=== PATIENT | male | born 1985 | race African-American/Black ===

== ENCOUNTER 2020-11-15 05:26 | Emergency (ER) | payer SELFPAY ==
[2020-11-15] MEDS: Ketorolac 30 MG/ML SDV IM ONE (05:55)
[2020-11-15] MEDS: hydrOXYzine HCl 50 MG/ML SDV IM ONE (05:55)
--- NOTE | 2020-11-15 06:36 | EDM.PDOC ---
<Tarun Rod M - Last Filed: 11/15/20 06:33> ED HPI GENERAL MEDICAL PROBLEM - General Chief Complaint: Chest Pain Stated Complaint: CHEST PAIN Time Seen by Provider: 11/15/20 06:33 Source of Information: Reports: Patient History Limitations: Reports: No Limitations - History of Present Illness INITIAL COMMENTS - FREE TEXT/NARRATIVE: Francesco complains of retrosternal chest pain that started after vomiting episode. No SOB. No radiation.Denies any cough.He is a smoker.Otherwise heathy Chest Pain Score (Numeric/FACES): 10 - Related Data Allergies Allergy/AdvReac Type Severity Reaction Status Date / Time No Known Allergies Allergy Verified 11/15/20 05:50 Home Meds: Home Meds NK [No Known Home Meds] 11/15/20 [History] Social & Family History - Tobacco Use Tobacco Use Status *Q: Current Every Day Tobacco User Years of Tobacco use: 6 Packs/Tins Daily: 0.3 - Caffeine Use Caffeine Use: Reports: Coffee, Energy Drinks, Soda, Tea - Recreational Drug Use Recreational Drug Use: No ED ROS GENERAL - Review of Systems Review Of Systems: Comprehensive ROS is negative, except as noted in HPI. ED EXAM, GENERAL - Physical Exam Exam: See Below Exam Limited By: No Limitations General Appearance: Alert, WD/WN, No Apparent Distress Ears: Normal External Exam Ear Exam: Bilateral Ear: Auricle Normal, Canal Normal, TM normal Nose: Normal Inspection Throat/Mouth: Normal Inspection Head: Atraumatic Neck: Normal Inspection Respiratory/Chest: No Respiratory Distress, Lungs Clear, No Accessory Muscle Use Cardiovascular: Normal Peripheral Pulses, Regular Rate, Rhythm, No Edema #1 Interpretation EKG Date: 11/15/20 Time: 05:30 Rhythm: NSR [place]: Normal P-Wave: Present ST-T: Normal Comparison: NA - No Prior EKG Departure - Departure Time of Disposition: 06:35 Disposition: DC/Tfer to Acute Hospital 02 Clinical Impression: Acute pancreatitis, Elevated liver function tests, Hypoalbuminemia, Alcohol abuse, Elevated blood pressure reading, Abnormal EKG, Hypomagnesemia Referrals: PCP,None [Primary Care Provider] - Forms: ED Department Discharge Sepsis Event Note (ED) - Evaluation Sepsis Screening Result: No Definite Risk - Problem List & Annotations (1) Chest pain SNOMED Code(s): 86241627 Code(s): R07.9 - CHEST PAIN, UNSPECIFIED Status: Acute Current Visit: Yes Qualifiers: Chest pain type: intercostal pain Qualified Code(s): R07.82 - Intercostal pain (2) HTN (hypertension) SNOMED Code(s): 11038838 Code(s): I10 - ESSENTIAL (PRIMARY) HYPERTENSION Status: Acute Current Visit: Yes Qualifiers: Hypertension type: essential hypertension Qualified Code(s): I10 - Essential (primary) hypertension (3) Tobacco abuse SNOMED Code(s): 453766826 Code(s): Z72.0 - TOBACCO USE Status: Acute Current Visit: Yes - Problem List Review Problem List Initiated/Reviewed/Updated: Yes <Carlton Moreno - Last Filed: 11/15/20 13:18> Course - Vital Signs Last Recorded V/S: Last Vital Signs Temp 36.6 C 11/15/20 05:30 Pulse 80 11/15/20 05:30 Resp 16 11/15/20 05:30 BP 164/111 H 11/15/20 06:41 Pulse Ox 99 11/15/20 05:30 - Orders/Labs/Meds Orders: Active Orders 24 hr Category Date Time Status EKG Documentation Completion [RC] ASDIRECTED Care 11/15/20 05:43 Active Ang Chest [CT] Stat Exams 11/15/20 06:37 Taken URINALYSIS W/MICROSCOPIC [UA W/MICROSCOPIC] [URIN] Stat Lab 11/15/20 07:42 Ordered Sodium Chloride 0.9% [Saline Flush] Med 11/15/20 06:48 Active 10 ml FLUSH ASDIRECTED PRN EKG 12 Lead [EK] Routine Ther 11/15/20 05:43 Ordered Medication Orders Sodium Chloride (Sodium Chloride 0.9% 10 Ml Syringe) 10 ml FLUSH ASDIRECTED PRN PRN Reason: IV Use Last Admin: 11/15/20 06:48 Dose: 10 ml Documented by: HUI Labs: Laboratory Tests 11/15/20 11/15/20 11/15/20 Range/Units 05:45 05:45 05:45 WBC 8.5 (3.2-10.1) x10-3/uL RBC 5.81 (3.90-5.90) x10(6)uL Hgb 17.4 (12.9-17.7) g/dL Hct 51.5 H (38.3-50.1) % MCV 88.6 (80.8-98.7) fL MCH 29.9 (27.0-33.3) pg MCHC 33.8 (28.7-35.3) g/dL RDW 16.3 H (12.4-15.0) % Plt Count 168 (117-477) x10(3)uL MPV 7.0 (6.7-11.0) fL Neut % (Auto) 76.0 H (40.3-71.8) % Lymph % (Auto) 11.0 L (15.8-45.3) % [place] % (Auto) 11.5 (5.5-15.2) % Eos % (Auto) 1.2 (0.1-6.8) % Baso % (Auto) 0.3 (0.3-3.8) % Neut # (Auto) 6.5 (1.7-6.9) x10-3/uL Lymph # (Auto) 0.9 (0.5-4.5) x10-3/uL [place] # (Auto) 1.0 (0.0-1.2) x10-3/uL Eos # (Auto) 0.1 (0.0-0.6) x10-3/uL Baso # (Auto) 0.0 (0.0-0.3) x10-3/uL D-Dimer, Quantitative 0.90 H (0.0-0.59) mg/LFEU Sodium 137 (135-145) mmol/L Potassium 3.6 (3.5-5.3) mmol/L Chloride 100 (100-110) mmol/L Carbon Dioxide 26 (21-32) mmol/L BUN 5 L (7-18) mg/dL Creatinine 0.9 (0.70-1.30) mg/dL Est Cr Clr Drug Dosing 89.31 mL/min Estimated GFR (MDRD) > 60 (>60) BUN/Creatinine Ratio 5.6 L (9-20) Glucose 153 H (80-116) mg/dL Calcium 8.5 L (8.6-10.2) mg/dL Total Bilirubin 1.6 H (0.1-1.3) mg/dL AST 183 H* (5-25) IU/L ALT 247 H* (12-36) U/L Alkaline Phosphatase 125 H (56-112) IU/L Troponin I (4.0-60.3) pg/mL C-Reactive Protein (0.5-0.9) mg/dL Total Protein 7.0 (6.0-8.0) g/dL Albumin 3.2 L (3.5-5.2) g/dL Globulin 3.8 g/dL Albumin/Globulin Ratio 0.8 Lipase (73-393) U/L 11/15/20 11/15/20 11/15/20 Range/Units 05:45 08:05 08:05 WBC (3.2-10.1) x10-3/uL RBC (3.90-5.90) x10(6)uL Hgb (12.9-17.7) g/dL Hct (38.3-50.1) % MCV (80.8-98.7) fL MCH (27.0-33.3) pg MCHC (28.7-35.3) g/dL RDW (12.4-15.0) % Plt Count (117-477) x10(3)uL MPV (6.7-11.0) fL Neut % (Auto) (40.3-71.8) % Lymph % (Auto) (15.8-45.3) % [place] % (Auto) (5.5-15.2) % Eos % (Auto) (0.1-6.8) % Baso % (Auto) (0.3-3.8) % Neut # (Auto) (1.7-6.9) x10-3/uL Lymph # (Auto) (0.5-4.5) x10-3/uL [place] # (Auto) (0.0-1.2) x10-3/uL Eos # (Auto) (0.0-0.6) x10-3/uL Baso # (Auto) (0.0-0.3) x10-3/uL D-Dimer, Quantitative (0.0-0.59) mg/LFEU Sodium (135-145) mmol/L Potassium (3.5-5.3) mmol/L Chloride (100-110) mmol/L Carbon Dioxide (21-32) mmol/L BUN (7-18) mg/dL Creatinine (0.70-1.30) mg/dL Est Cr Clr Drug Dosing mL/min Estimated GFR (MDRD) (>60) BUN/Creatinine Ratio (9-20) Glucose (80-116) mg/dL Calcium (8.6-10.2) mg/dL Total Bilirubin (0.1-1.3) mg/dL AST (5-25) IU/L ALT (12-36) U/L Alkaline Phosphatase (56-112) IU/L Troponin I 7.6 8.4 (4.0-60.3) pg/mL C-Reactive Protein 1.7 H (0.5-0.9) mg/dL Total Protein (6.0-8.0) g/dL Albumin (3.5-5.2) g/dL Globulin g/dL Albumin/Globulin Ratio Lipase 1951 H (73-393) U/L Meds: Medications Generic Name Dose Route Start Last Admin Trade Name Isabel PRN Reason Stop Dose Admin Sodium Chloride 10 ml 11/15/20 06:48 11/15/20 06:48 Sodium Chloride 0.9% 10 Ml Syringe FLUSH 10 ml ASDIRECTED PRN Administration IV Use Discontinued Medications Generic Name Dose Route Start Last Admin Trade Name Isabel PRN Reason Stop Dose Admin Clonidine HCl 0.1 mg 11/15/20 06:36 11/15/20 06:41 Clonidine 0.1 Mg Tab PO 11/15/20 06:37 0.1 mg ONETIME ONE Administration Al Hydroxide/Mg Hydroxide 15 0 ml 11/15/20 06:36 11/15/20 06:41 ml/ Lidocaine HCl 15 ml PO 11/15/20 06:37 30 ml ONETIME ONE Administration Hydroxyzine HCl 50 mg 11/15/20 05:49 11/15/20 05:55 Hydroxyzine Hcl 50 Mg/Ml Sdv IM 11/15/20 05:50 50 mg ONETIME ONE Administration Sodium Chloride 1,000 mls @ 999 mls/hr 11/15/20 07:44 11/15/20 08:13 Normal Saline IV 11/15/20 08:44 999 mls/hr .BOLUS ONE Administration Iopamidol 100 ml 11/15/20 06:58 11/15/20 07:13 Iopamidol 755 Mg/Ml 100 Ml Bottle IV 11/15/20 06:59 85 ml . DIRECTED ONE Administration Ketorolac Tromethamine 60 mg 11/15/20 05:49 11/15/20 05:55 Ketorolac 30 Mg/Ml Sdv IM 11/15/20 05:50 60 mg ONETIME ONE Administration - Re-Assessments/Exams Free Text/Narrative Re-Assessment/Exam: 11/15/20 13:12 no open beds locally d/w Dr Preston at [facility] at about 9:30a who accepted pt in transfer, bed assignment now made (had to wait for d/c's) CTA chest shows acute pancreatitis, pt agreed to admission low alb/BUN suggest chronic severe alcoholism EKG with possible Q-wave in V1 & V2 of uncertain clinical sig Departure - Departure Time of Disposition: 13:13 Reason for Transfer *Q: Other Condition: Good Sepsis Event Note (ED) - Focused Exam Vital Signs: Vital Signs Temp Pulse Resp BP BP Pulse Ox 11/15/20 06:41 164/111 H 11/15/20 05:30 36.6 C 80 16 181/128 H 99 - My Orders Last 24 Hours: My Active Orders 11/15/20 07:42 URINALYSIS W/MICROSCOPIC [UA W/MICROSCOPIC] [URIN] Stat - Assessment/Plan Last 24 Hours: My Active Orders 11/15/20 07:42 URINALYSIS W/MICROSCOPIC [UA W/MICROSCOPIC] [URIN] Stat
[2020-11-15] MEDS: Alum Hydroxide/Mag Hydroxide 15 ML, Lidocaine 2% 15 ML PO ONE ×2 (06:41)
[2020-11-15] MEDS: cloNIDine 0.1 MG Tab PO ONE (06:41)
[2020-11-15] MEDS: Sodium Chloride 0.9% 10 ML Syringe FLUSH PRN (06:48)
[2020-11-15] MEDS: Iopamidol 755 Mg/ML 100 ML Bottle IV ONE (07:13)
[2020-11-15] MEDS: Sodium Chloride 0.9% 1,000 ML IV ONE ×2 (08:13→09:16)
[2020-11-15] MEDS: Magnesium Sulfate/Water 2 GM/50 ML BAG IV ONE (10:10)
[2020-11-15] MEDS: Dextrose 5%-0.225% NaCl w/KCl 1,000 ML IV SCH (13:39)
== END 2020-11-15 13:50 ==
LOC: FB.ED 05:26
DX: K85.90 Acute pancreatitis without necrosis or infection, unspecified (principal); F10.10 Alcohol abuse, uncomplicated; R79.89 Other specified abnormal findings of blood chemistry; E83.42 Hypomagnesemia; I10 Essential (primary) hypertension; E88.09 Other disorders of plasma-protein metabolism, not elsewhere classified; Z72.0 Tobacco use
CPT/HCPCS: 36415; 71275; 80053; 81001; 83690; 83735; 84484; 85025; 85379; 86140; 93005; 93010; 96365; 96366; 96372; 96375; 99285; 99285-25; A9270-GY; J1885; J3410; J3475; J3480; J7030; Q9967; U0002

== ENCOUNTER 2020-11-22 12:19 | Emergency (ER) | payer MEDICAID ==
--- NOTE | 2020-11-22 12:32 | EDM.PDOC ---
ED HPI GENERAL MEDICAL PROBLEM - General Stated Complaint: L SIDE PAIN Time Seen by Provider: 11/22/20 12:32 Source of Information: Reports: Patient History Limitations: Reports: No Limitations - History of Present Illness INITIAL COMMENTS - FREE TEXT/NARRATIVE: 35-year-old male who reports that he was helping his friend move a couch down some stairs at their apartments and he was at the top of the stairs holding the couch and going down the stairs when the couch slipped and they both fell. The patient states that he fell directly against the stairs and striking his left mid to lower back. He states he has sharp pain in this area that he rates as an 8/10. It is worse with movement and with palpation. He has no abdominal pain. He denies any head injury. There was no loss of consciousness. There is no neck pain. He has had no hematuria. No nausea or vomiting. He states this occurred yesterday evening. The pain does not radiate. No difficulty breathing or chest pain. There are no other associated signs or symptoms. There are no other modifying factors. Onset: Other (Yesterday evening) Duration: Getting Worse Location: Reports: Back Quality: Reports: Sharp Severity: Moderate Improves with: Reports: Rest Worsens with: Reports: Other (Palpation), Movement Context: Reports: Trauma Associated Symptoms: Reports: No Other Symptoms Treatments [employer]: Reports: Other (see below) (Nothing.) - Related Data Allergies Allergy/AdvReac Type Severity Reaction Status Date / Time No Known Allergies Allergy Verified 11/15/20 05:50 Home Meds: Home Meds traMADol [Ultram] 50 mg PO Q6H PRN #14 tab 11/22/20 [Rx] Past Medical History Gastrointestinal History: Reports: Pancreatitis Psychiatric History: Reports: Addiction (Alcohol abuse) - Past Surgical History Other Surgical History Comment: No previous surgeries. Social & Family History - Tobacco Use Tobacco Use Status *Q: Current Every Day Tobacco User - Caffeine Use Caffeine Use: Reports: Coffee, Energy Drinks, Soda, Tea - Alcohol Use Alcohol Use History: Yes Alcohol Use Frequency: Weekly Alcohol Use Comment: He does state that he stopped drinking one week ago after his pancreatitis. - Living Situation & Occupation Social History Comment: He is here with his roommate. ED ROS GENERAL - Review of Systems Review Of Systems: See Below Constitutional: Reports: No Symptoms HEENT: Reports: No Symptoms Respiratory: Reports: No Symptoms Cardiovascular: Reports: No Symptoms Endocrine: Reports: No Symptoms GI/Abdominal: Reports: No Symptoms : Reports: No Symptoms Musculoskeletal: Reports: Back Pain (Left-sided back pain and left lumbar paraspinous tenderness.) Skin: Reports: No Symptoms Neurological: Reports: No Symptoms Psychiatric: Reports: No Symptoms Hematologic/Lymphatic: Reports: No Symptoms Immunologic: Reports: No Symptoms ED EXAM, GENERAL - Physical Exam Exam: See Below Exam Limited By: No Limitations General Appearance: Alert, WD/WN, Moderate Distress (Appears in some pain but otherwise nontoxic.) Eye Exam: Bilateral Eye: EOMI, Normal Inspection, PERRL Ears: Normal External Exam, Hearing Grossly Normal Ear Exam: Bilateral Ear: Auricle Normal Nose: Normal Inspection, Normal Mucosa, No Blood Throat/Mouth: Normal Oropharynx, Normal Voice, No Airway Compromise Head: Atraumatic, Normocephalic Neck: Normal Inspection, Supple, Non-Tender, Full Range of Motion Respiratory/Chest: No Respiratory Distress, Lungs Clear, Normal Breath Sounds, No Accessory Muscle Use, Chest Non-Tender Cardiovascular: Normal Peripheral Pulses, Regular Rate, Rhythm, No Murmur Peripheral Pulses: 2+: Radial (L), Radial (R) GI/Abdominal: Normal Bowel Sounds, Soft, Non-Tender, No Mass Back Exam: Muscle Spasm (In left lumbar paraspinous areas.), Paraspinal Tenderness (Left. There is some soft tissue swelling in this area as well.) Extremities: Normal Inspection, Normal Range of Motion, Non-Tender, No Pedal Edema, Normal Capillary Refill Neurological: Alert, Oriented, CN II-XII Intact, Normal Gait, No Motor/Sensory Deficits Psychiatric: Normal Affect Skin Exam: Warm, Dry, Intact, Normal Color, No Rash Course - Vital Signs Last Recorded V/S: Last Vital Signs Temp 36.3 C 11/22/20 12:32 Pulse 55 L 11/22/20 14:26 Resp 20 11/22/20 14:26 BP 158/116 H 11/22/20 14:26 Pulse Ox 100 11/22/20 14:26 - Orders/Labs/Meds Orders: Active Orders 24 hr Category Date Time Status Lumbar Spine 2 or 3V [CR] Stat Exams 11/22/20 12:58 Taken Lumbar Spine wo Cont [CT] Stat Exams 11/22/20 14:08 Taken Labs: Laboratory Tests 11/22/20 Range/Units 14:11 Urine Color Yellow (YELLOW) Urine Appearance Clear (CLEAR) Urine pH 7.0 H (5.0-6.5) Ur Specific [place] 1.010 (1.010-1.025) Urine Protein Negative (NEGATIVE) mg/dL Urine Glucose (UA) Normal (NORMAL) mg/dL Urine Ketones Negative (NEGATIVE) mg/dL Urine Occult Blood Negative (NEGATIVE) Urine Nitrite Negative (NEGATIVE) Urine Bilirubin Negative (NEGATIVE) Urine Urobilinogen Normal (NEGATIVE) mg/dL Ur Leukocyte Esterase Negative (NEGATIVE) Urine RBC 0-5 (0-5) Urine WBC 0-5 (0-5) Ur Squamous Epith Cells Occasional (NS,R,O) Urine Bacteria Rare H (NS) Meds: Medications Discontinued Medications Generic Name Dose Route Start Last Admin Trade Name Freq PRN Reason Stop Dose Admin Ketorolac Tromethamine 60 mg 11/22/20 13:00 11/22/20 13:18 Ketorolac 30 Mg/Ml Sdv IM 11/22/20 13:01 60 mg ONETIME ONE Administration - Radiology Interpretation Free Text/Narrative:: Lumbar spine x-ray shows probable L2 and L3 left lumbar transverse process fractures. I will send the patient for CT of his lumbar spine to further evaluate this. CT scan of lumbar spine shows L1-L4 left lumbar transverse process fractures. No other acute abnormality was seen by the radiologist. - Re-Assessments/Exams Free Text/Narrative Re-Assessment/Exam: 11/22/20 15:15: The CT scan of the patient's lumbar spine did show L1-L4 transverse process fractures. The urine has just come back and shows no evidence of blood. Patient's initial blood pressure was 168/122. Patient did have a repeat blood pressure that was 149/107. He remains awake and alert. His abdomen remains benign and completely nontender. He does have tenderness over the left lumbar paraspinous area. He is feeling improved after the Toradol. The patient does appear to be stable for discharge. I will give the patient a prescription for tramadol for pain in addition to ibuprofen and Tylenol. I have discussed his elevated blood pressure reading with him and have highly recommended that he establish with a primary doctor as he will need to have this rechecked and may well need treatment for his blood pressure if it continues to be elevated. Precautions and reasons for return to the emergency department were discussed with the patient while he was in the emergency department and were detailed in his discharge instructions. Departure - Departure Time of Disposition: 15:25 Disposition: Home, Self-Care 01 Condition: Good Clinical Impression: Multiple transverse process fractures, Elevated blood pressure reading Lumbar transverse process fracture Qualifiers: Encounter type: initial encounter Fracture type: closed Qualified Code(s): S32.009A - Unspecified fracture of unspecified lumbar vertebra, initial encounter for closed fracture Fall on stairs Qualifiers: Encounter type: initial encounter Qualified Code(s): W10.9XXA - Fall (on) (from) unspecified stairs and steps, initial encounter - Discharge Information Prescriptions: traMADol [Ultram] 50 mg PO Q6H PRN #14 tab PRN Reason: Moderate to severe pain Instructions: Transverse Process Fracture Referrals: PCP,None [Primary Care Provider] - Additional Instructions: You did have fractures of the transverse processes of 4 of the lower backbones these are bones that him off of the sides of the backbones and are what muscles attach to. They will have to heal on their own. You should avoid any heavy or strenuous activity for the next 1-2 weeks. You can use ibuprofen and Tylenol for pain as needed. Medication as prescribed for more severe pain (tramadol 50 mg). Your blood pressure was also elevated in the emergency department. You'll need to establish with a primary doctor so that you can have this rechecked as you may need treatment for this. Back to the emergency department for marked increase in pain, trouble breathing, abdominal pain, coughing up blood, urinating blood or any other concerning signs or symptoms. Sepsis Event Note (ED) - Focused Exam Vital Signs: Vital Signs Temp Pulse Resp BP Pulse Ox 11/22/20 14:26 55 L 20 158/116 H 100 11/22/20 13:30 74 20 145/107 H 100 11/22/20 13:15 69 20 149/115 H 100 11/22/20 12:32 36.3 C 69 18 178/127 H 100 11/22/20 12:31 74 18 168/122 H 100 - My Orders Last 24 Hours: My Active Orders 11/22/20 12:58 Lumbar Spine 2 or 3V [CR] Stat 11/22/20 14:08 Lumbar Spine wo Cont [CT] Stat - Assessment/Plan Last 24 Hours: My Active Orders 11/22/20 12:58 Lumbar Spine 2 or 3V [CR] Stat 11/22/20 14:08 Lumbar Spine wo Cont [CT] Stat
[2020-11-22] MEDS ORDERED: Ketorolac 30 MG/ML SDV IM ONE (13:00)
--- NOTE | 2020-11-22 15:50 | CT ---
CT LUMBOSACRAL SPINE WITHOUT CONTRAST [id number] INDICATION: Fall with lower back injury. Appears to be left transverse process fracture x2. Spiral 2.5 mm axial sections were obtained through the lumbosacral spine with sagittal, coronal, and angled axial reconstructions (the angled axial reconstructions were through the L1-2, L4-5, and L5-S1 levels. Vertebral bodies and disc heights appear to be maintained without evidence of herniated nucleus pulposus or significant bulging discs. No spinal stenosis was seen. Bone density appeared normal. Vertebral elements appear to be well aligned. Transverse fractures are noted through the left transverse processes of L1, 2, 3, and L4 with slight distraction of fracture fragments which is most prominent at the L2 and L3 fracture sites. There appears to be some soft tissue swelling in that area with a bulge of the psoas shadow on the left. No other acute abnormality was seen. IMPRESSION: LEFT Transverse process fractures noted L1 through L4. Total exam DLP was 420.74 mGy-cm. Report was called to Dr. Tejada at [address] [facility]
--- NOTE | 2020-11-22 16:03 | CR ---
LUMBOSACRAL SPINE THREE VIEWS [id number] INDICATION: Fall with injury to left back. Three views of the lumbosacral spine were obtained revealing a minimal dextroconvex scoliosis of the upper middle lumbar spine. Vertebral body and disc heights were well maintained. There are fractures through the left transverse processes of L1 through L4 with slight offset and slight distraction of the L3 left transverse process fracture site. Little deformity is noted at the other fracture sites. The pedicles appear to be intact. Sacroiliac joints appear to be intact. IMPRESSION: Left transverse process fractures L1 through L4. MTDD
== END 2020-11-22 15:35 | disposition home or self-care (01) ==
LOC: FB.ED 12:19
DX: S32.018A Other fracture of first lumbar vertebra, initial encounter for closed fracture (principal); S32.048A Other fracture of fourth lumbar vertebra, initial encounter for closed fracture; Z72.0 Tobacco use; R03.0 Elevated blood-pressure reading, without diagnosis of hypertension; W10.9XXA Fall (on) (from) unspecified stairs and steps, initial encounter
CPT/HCPCS: 72100; 72131; 81001; 96372; 99284-25; J1885

== ENCOUNTER 2021-11-08 18:09 | Observation (INO) | payer BC, MEDICAID, OTHER ==
[2021-11-08] MEDS ORDERED: Ondansetron 4 MG/2 ML SDV IVPUSH ONE (18:36)
[2021-11-08] MEDS ORDERED: Morphine 4 MG/ML VIAL IVPUSH STA (18:37)
[2021-11-08] MEDS ORDERED: Alum Hydroxide/Mag Hydroxide 15 ML, Lidocaine 2% 15 ML PO ONE ×2 (18:37)
[2021-11-08] MEDS ORDERED: Sodium Chloride 0.9% 1,000 ML IV SCH (18:45)
[2021-11-08] MEDS ORDERED: Iopamidol 755 Mg/ML 75 ML Bottle IV ONE (19:06)
[2021-11-08] MEDS: Sodium Chloride 0.9% 1,000 ML IV SCH (23:00)
[2021-11-08] MEDS ORDERED: Pantoprazole 40 MG Vial IV SCH (23:45)
[2021-11-08] MEDS ORDERED: Thiamine 100 MG in Sodium Chloride 0.9% 50 ML IV SCH (23:45)
[2021-11-08] MEDS ORDERED: LORazepam 2 MG/ML SDV IV SCH (23:45)
[2021-11-08] MEDS ORDERED: Folic Acid 50 MG/10 ML MDV SUBCUT ONE (23:54)
[2021-11-09] MEDS: HYDROmorphone 2 MG/ML SDV IVPUSH PRN ×3 (01:11→21:06)
[2021-11-09] MEDS: Sodium Chloride 0.9% 1,000 ML IV SCH ×3 (03:01→16:48)
[2021-11-09] MEDS ORDERED: Folic Acid 50 MG/10 ML MDV SUBCUT ONE (03:11)
[2021-11-09] MEDS ORDERED: LORazepam 2 MG/ML SDV IV SCH (03:11)
[2021-11-09] MEDS: Pantoprazole 40 MG Vial IV SCH ×2 (07:27→08:13)
[2021-11-09] MEDS ORDERED: Thiamine 100 MG in Sodium Chloride 0.9% 50 ML IV SCH (09:00)
[2021-11-09] MEDS: Potassium Chloride 20 MEQ Tab.ER PO SCH (10:06)
[2021-11-09] MEDS: Thiamine 100 MG in Sodium Chloride 0.9% 100 ML IV SCH (10:10)
[2021-11-10] MEDS ORDERED: Ondansetron 4 MG Tab.DIS PO PRN (00:14)
[2021-11-10] MEDS: Sodium Chloride 0.9% 1,000 ML IV SCH (03:06)
[2021-11-10] MEDS: Potassium Chloride 20 MEQ Tab.ER PO SCH (09:53)
[2021-11-10] MEDS: Thiamine 100 MG in Sodium Chloride 0.9% 100 ML IV SCH (09:54)
[2021-11-10] MEDS: Pantoprazole 40 MG Vial IV SCH (10:17)
== END 2021-11-10 18:10 | disposition home or self-care (01) ==
LOC: FB.ED 18:09 → UNDOADMIN 21:56 → FB.MS 21:56 → INTOOBSV 21:58
PROVIDERS: ADMIT Family Medicine; ATTEND Family Medicine
DX: K86.0 Alcohol-induced chronic pancreatitis (principal); F17.210 Nicotine dependence, cigarettes, uncomplicated; E87.6 Hypokalemia; E86.0 Dehydration; Z20.822 Contact with and (suspected) exposure to COVID-19
CPT/HCPCS: 36415; 74177; 80053; 80061; 80307; 81001; 82150; 83690; 85025; 96365; 96366; 96372; 96374; 96375; 96376; 99284; 99285-25; A9270-GY; C9113; G0378; J1170; J2270; J2405; J3411; J3490; J7030; Q0162; Q9967; U0002

== ENCOUNTER 2022-04-22 10:06 | Emergency (ER) | payer BC, MEDICAID | END 2022-04-22 12:04 | disposition home or self-care (01) | LOC: FB.ED 10:06 | DX: S20.211A Contusion of right front wall of thorax, initial encounter (principal); Z79.899 Other long term (current) drug therapy; W10.9XXA Fall (on) (from) unspecified stairs and steps, initial encounter | CPT/HCPCS: 71101-RT; 99283 ==

== ENCOUNTER 2024-03-13 20:27 | Emergency (ER) | payer BC, MEDICAID | END 2024-03-13 21:46 | disposition home or self-care (01) | LOC: FB.ED 20:27 | DX: U07.1 COVID-19 (principal); F17.210 Nicotine dependence, cigarettes, uncomplicated; Z79.899 Other long term (current) drug therapy | CPT/HCPCS: 99283; U0002 ==